=== PATIENT | male | born 1955 | race African-American/Black ===

== ENCOUNTER 2018-06-25 12:04 | Inpatient (IN) | payer MEDICAID, OTHER ==
[~2018-06-25] VITALS: Ht 175.3 cm; Wt 93.5 kg
[~2018-06-25 12:04] MED LIST: ASPI-482 PO; ATOR20TA58 PO; CARV3.12 PO; HYDR25TA9 PO; HYDR50TA6 PO; ISOS20TA2 PO; LISI-334 PO; NITR0.4T SL; PRAS10TA9 PO
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
[2018-06-25 12:28] LABS: BASO % 0 % (0-3); EOS # 0.1 x10^3/uL (0.0-0.7); EOS % 1 % (0-3); HEMATOCRIT 40.5 % (39.0-53.0); HEMOGLOBIN 13.6 g/dL (13.0-17.5); LYMPH % 32 % (24-48); MEAN CORPUSCULAR HEMOGLOBIN 30 pg (25-35); MEAN CORPUSCULAR HGB CONC 34 g/dL (31-37); MEAN CORPUSCULAR VOLUME 90 fL (79-100); MONO # 0.8 x10^3/uL (0.0-1.1); MONO % 13 % (0-9); NEUT # 3.3 x10^3uL (1.8-7.7); NEUT % 54 % (31-73); PLATELET COUNT 160 x10^3/uL (140-400); RED BLOOD COUNT 4.51 x10^6/uL (4.30-5.70); RED CELL DISTRIBUTION WIDTH 14.4 % (11.5-14.5); WHITE BLOOD COUNT 6.1 x10^3/uL (4.0-11.0)
[2018-06-25 12:37] LABS: CALCIUM 9.7 mg/dL (8.5-10.1); CREATININE 1.2 mg/dL (0.7-1.3); GFR 74.2; POTASSIUM 4.3 mmol/L (3.5-5.1)
--- NOTE | 2018-06-25 12:39 | RAD ---
PORTABLE CHEST 1V Clinical Indication: chest pain x today Comparison: Two-view chest, May 05, 2016. Findings: Moderate cardiomegaly, not significantly changed. Cannot exclude component of pericardial effusion. Upper mediastinum is normal. No pulmonary vascular congestion. Lungs are clear. There is no pneumothorax. No pleural effusion is appreciated. No acute bone abnormality. IMPRESSION: Stable moderate cardiomegaly. No congestive failure. Electronically signed by: Wm Pichardo MD (06/25/2018 12:36 PM) [id number]
[2018-06-25 12:43] LABS: ALBUMIN 3.5 g/dL (3.4-5.0); MAGNESIUM 2.1 mg/dL (1.8-2.4); TOTAL BILIRUBIN 0.8 mg/dL (0.2-1.0)
[2018-06-25] MEDS ORDERED: HEPARIN for IV BOLUS 10,000 UNIT/10 ML VIAL. IV ONE (13:00)
[2018-06-25] MEDS ORDERED: HEPARIN 25,000UTS/500ML PREMIX 500 ML IV PRN (13:00)
[2018-06-25] MEDS ORDERED: NITROGLYCERIN OINT 1 GM PACKET. TP ONE (13:00)
[2018-06-25] MEDS ORDERED: HEPARIN for IV BOLUS 10,000 UNIT/10 ML VIAL. IV PRN (13:00)
[2018-06-25] MEDS ORDERED: ACETAMINOPHEN 500 MG TABLET PO ONE (13:15)
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
--- NOTE | 2018-06-25 14:34 | EKG ---
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
[2018-06-25 16:00] VITALS: BP 128/59
[2018-06-25 16:03] LABS: CHOLESTEROL/HDL RATIO 2.9
[2018-06-25] MEDS ORDERED: DEXTROSE 50% 25 GM / 50ML DISP.SYRIN. IV PRN (16:15)
[2018-06-25] MEDS ORDERED: METO25TA4 PO (16:19)
[2018-06-25] MEDS ORDERED: ISOS30TA4 PO (16:19)
[2018-06-25] MEDS ORDERED: FURO40TA4 PO (16:19)
[2018-06-25] MEDS ORDERED: HYDR-2868 PO (16:19)
[2018-06-25] MEDS ORDERED: SPIR25TA5 PO (16:19)
[2018-06-25] MEDS ORDERED: METOPROLOL SUCC 24HR ER 25 MG TAB.ER.24H. PO SCH (16:30)
[2018-06-25] MEDS: ASPIRIN ENTERIC COATED 81 MG TABLET.DR. PO SCH (16:30)
[2018-06-25] MEDS: INSULIN LISPRO 300 UNITS/3 ML INSULN.PEN. SQ SCH (17:00)
[2018-06-25] MEDS: LISINOPRIL 20 MG TABLET PO SCH (17:26)
[2018-06-25] MEDS: FUROSEMIDE 40 MG TABLET. PO SCH (17:26)
[2018-06-25] MEDS: SPIRONOLACTONE 25 MG TABLET PO SCH (17:26)
[2018-06-25 19:00] VITALS: BP 140/64
[2018-06-25] MEDS: hydrALAZINE 25 MG TABLET PO SCH (21:37)
[2018-06-25] MEDS: METOPROLOL TART IMMED RELEASE 25 MG TABLET. PO SCH (21:37)
[2018-06-25 23:00] VITALS: BP 120/49
[2018-06-25] MEDS: ACETAMINOPHEN 500 MG TABLET PO PRN (23:46)
[2018-06-26] VITALS (7 sets, daily range): BP systolic 92–137; BP diastolic 43–63
[2018-06-26] MEDS: HYDROcodone/APAP 5/325MG 1 TAB TABLET PO PRN ×2 (01:22→22:30)
[2018-06-26] MEDS: INSULIN LISPRO 300 UNITS/3 ML INSULN.PEN. SQ SCH ×3 (08:00→17:00)
[2018-06-26] MEDS: ASPIRIN ENTERIC COATED 81 MG TABLET.DR. PO SCH (08:56)
[2018-06-26] MEDS: ISOSORBIDE MONONITRATE 20 MG TABLET PO SCH ×2 (09:00→14:00)
[2018-06-26] MEDS: LISINOPRIL 20 MG TABLET PO SCH (09:00)
[2018-06-26] MEDS: SPIRONOLACTONE 25 MG TABLET PO SCH (09:00)
[2018-06-26] MEDS: hydrALAZINE 25 MG TABLET PO SCH ×2 (09:00→20:52)
[2018-06-26] MEDS: FUROSEMIDE 40 MG TABLET. PO SCH (09:00)
[2018-06-26] MEDS: METOPROLOL TART IMMED RELEASE 25 MG TABLET. PO SCH (09:00)
--- NOTE | 2018-06-26 09:36 | RAD ---
MR#: [id number] Date of Study: 06/25/2018 Ordering Physician: GERALDO WASHINGTON, Referring Physician: YOLIS SANDOVAL, Tech: Jose Irby MBA, RDMS, RVT, RDCS, RTR APPROVED REPORT Patient Location: IN-PATIENT Indications AAA Duplex Results A/PTransverseLongitudinal Proximal Aorta 2.3cm2.2cm Mid Aorta 2.1cm1.8cm Distal Aorta 2.4cm1.2cm Findings Grayscale images of the abdominal aorta were obtained in transverse and longitudinal planes. Images a re technically limited by gas. No obvious aneurysmal dilatation is noted with maximum transversal dimensions measuring 2.4 cm in the distal abdominal aorta. The bilateral common iliacs were visualized on limited images and are mildly dilated at 1.4 and 1.8 cm on the right and left respectively. Critical Notification Critical Value: No <Conclusion> No focal aneurysmal dilatation of the abdominal aorta is appreciated on this ultrasound examination Normal spectral velocities in the abdominal aorta. Signed by : Marshall Andrew, Electronically Approved : 06/26/2018 09:35:48
[2018-06-26] MEDS: ANTI-COAG MONITOR BY PHARMACY. MC PRN (10:07)
--- NOTE | 2018-06-26 11:01 | CARD ---
MR#: [id number] Date of Study: 06/26/2018 Ordering Physician: GERALDO WASHINGTON, Referring Physician: YOLIS SANDOVAL Tech: Maria C Gallagher [facility] APPROVED REPORT EXAM: Two-dimensional and M-mode echocardiogram with Doppler and color Doppler. Other Information Quality : Good Rhythm : Atrial Flutter INDICATION Abnormal ECG Cardiac Disease: CAD Chest Pain Aflutter 2D DIMENSIONS RVDd3.3 (2.9-3.5cm)Left Atrium(2D)4.4 (1.6-4.0cm) IVSd1.5 (0.7-1.1cm)Aortic Root(2D)2.9 (2.0-3.7cm) LVDd6.4 (3.9-5.9cm)LVOT Diameter2.1 (1.8-2.4cm) PWd1.2 (0.7-1.1cm)LVDs5.0 (2.5-4.0cm) FS (%) 21.8 %SV89.2 ml LVEF(%)45.0 (>50%) Aortic Valve AoV Peak Cem.184.5cm/sAoV VTI31.2cm AO Peak GR.13.6mmHgLVOT VTI 23.93cm AO Mean GR.7mmHgAVA (VTI)2.60cm2 Mitral Valve MV E Nwyakpgu13.3cm/sMV DECEL [id number] TDI Medial E' P. V7.21cm/sE/Medial E'13.6 Tricuspid Valve TR P. Mmzkvzaa433hb/sRAP [id number] TR Peak Gr.49nkEqYHTC43qeJb Pulmonary Vein S1 Bclrdvhb79.2cm/sS2 Mtidvdyh82.64cm/s D2 Temuiemm38.6cm/s LEFT VENTRICLE The Left Ventricle is mildly dilated. There is mild to moderate concentric left ventricular hypertrop hy. The left ventricular systolic function is mildly diminished. The Ejection Fraction is estimated a t 40-45%. Septal motion consistent with conduction abnormality. RIGHT VENTRICLE The right ventricle is normal size. The right ventricular systolic function is normal. ATRIA The left atrium is mildly dilated. The right atrium is mildly dilated. The interatrial septum is inta ct with no evidence for an atrial septal defect or patent foramen ovale as noted on 2-D or Doppler im aging. AORTIC VALVE The aortic valve is calcified but opens well. Doppler and Color Flow revealed no significant aortic r egurgitation. There is no significant aortic valvular stenosis. MITRAL VALVE The mitral valve is calcified but opens well. Mitral annular calcification is mild. There is no evide nce of mitral valve prolapse. There is no mitral valve stenosis. Doppler and Color-flow revealed mild mitral regurgitation. TRICUSPID VALVE The tricuspid valve is normal in structure and function. Doppler and Color Flow revealed trace tricus pid regurgitation. There is mild pulmonary hypertension. The PA pressure was estimated at 35 mmHg. Th ere is no tricuspid valve stenosis. PULMONIC VALVE The pulmonary valve is normal in structure and function. Doppler and Color Flow revealed trace pulmon ic valvular regurgitation. There is no pulmonic valvular stenosis. GREAT VESSELS The aortic root is normal in size. The ascending aorta is normal in size. The IVC is normal in size a nd collapses >50% with inspiration. PERICARDIAL EFFUSION There is no evidence of significant pericardial effusion. Critical Notification Critical Value: No <Conclusion> The left ventricular systolic function is mildly diminished. The Ejection Fraction is estimated at 40-45%. The left atrium is mildly dilated. Mild mitral regurgitation. Trace tricuspid regurgitation. The PA pressure was estimated at 35 mmHg. There is no evidence of significant pericardial effusion. Signed by : Derek Wallace, Electronically Approved : 06/26/2018 11:01:20
[2018-06-26] MEDS ORDERED: LIDOCAINE 1% PF 2 ML VIAL. ONE (11:28)
[2018-06-26] MEDS ORDERED: IODIXANOL 320 MG/ML 100 ML VIAL. ONE (11:28)
[2018-06-26] MEDS ORDERED: HEPARIN for IV BOLUS 10,000 UNIT/10 ML VIAL. ONE (11:55)
[2018-06-26] MEDS ORDERED: VERAPAMIL 5 MG/2 ML VIAL. ONE (11:55)
[2018-06-26] MEDS ORDERED: MIDAZOLAM HCL/PF 2 MG/2 ML VIAL. ONE (11:55)
[2018-06-26] MEDS ORDERED: fentaNYL PF VIAL 100 MCG/2 ML VIAL ONE (11:55)
[2018-06-26] MEDS ORDERED: NITROGLYCERIN 200 MCG/2 ML SYRINGE FOR CATH/VASC LAB. ONE (11:56)
--- NOTE | 2018-06-26 12:14 | PDOC ---
PROGRESS NOTES Chief Complaint Chief Complaint chest pain, possibly N STEMI History CAD, with 1 stent SLow atrial flutter, new onset Incarcerated HTN controlled \Smoker Fam HX CAD. premature History of Present Illness History of Present Illness Out having [facility] Heart rate 50s, on beta gibson 25 twice a day A flutter/A. fib is new onset PLAN: ff up [facility] Trop peaked to 0.5 Follow crads recs IS incarcerated dw RN Doroteo Vitals Vitals Vital Signs Date Time Temp Pulse Resp B/P (MAP) Pulse Ox O2 Delivery O2 Flow Rate FiO2 06/26/18 09:14 50 06/26/18 09:00 111/45 06/26/18 08:06 Room Air 06/26/18 07:00 98.5 16 96 98.5 06/25/18 12:17 2.0 Physical Exam General: Alert, Oriented X3, Cooperative, No acute distress Heart: Other (AFIB; 2/6 systolic murmur to LLS border) Lungs: Clear, Other Abdomen: Soft, No tenderness Extremities: No cyanosis, No edema Skin: No breakdown, No significant lesion Labs LABS Laboratory Tests Test 06/25/18 12:23 06/25/18 16:53 06/25/18 19:35 06/26/18 02:15 White Blood Count 6.1 x10^3/uL (4.0-11.0) Red Blood Count 4.51 x10^6/uL (4.30-5.70) Hemoglobin 13.6 g/dL (13.0-17.5) Hematocrit 40.5 % (39.0-53.0) Mean Corpuscular Volume 90 fL (79-100) Mean Corpuscular Hemoglobin 30 pg (25-35) Mean Corpuscular Hemoglobin Concent 34 g/dL (31-37) Red Cell Distribution Width 14.4 % (11.5-14.5) Platelet Count 160 x10^3/uL (140-400) Neutrophils (%) (Auto) 54 % (31-73) Lymphocytes (%) (Auto) 32 % (24-48) Monocytes (%) (Auto) 13 % (0-9) Eosinophils (%) (Auto) 1 % (0-3) Basophils (%) (Auto) 0 % (0-3) Neutrophils # (Auto) 3.3 x10^3uL (1.8-7.7) Lymphocytes # (Auto) 2.0 x10^3/uL (1.0-4.8) Monocytes # (Auto) 0.8 x10^3/uL (0.0-1.1) Eosinophils # (Auto) 0.1 x10^3/uL (0.0-0.7) Basophils # (Auto) 0.0 x10^3/uL (0.0-0.2) Prothrombin Time 14.0 SEC (11.7-14.0) Prothromb Time International Ratio 1.1 (0.8-1.1) Sodium Level 143 mmol/L (136-145) Potassium Level 4.3 mmol/L (3.5-5.1) Chloride Level 108 mmol/L (98-107) Carbon Dioxide Level 29 mmol/L (21-32) Anion Gap 6 (6-14) Blood Urea Nitrogen 12 mg/dL (8-26) Creatinine 1.2 mg/dL (0.7-1.3) Estimated GFR (Cockcroft-Gault) 74.2 BUN/Creatinine Ratio 10 (6-20) Glucose Level 84 mg/dL (70-99) Calcium Level 9.7 mg/dL (8.5-10.1) Magnesium Level 2.1 mg/dL (1.8-2.4) Total Bilirubin 0.8 mg/dL (0.2-1.0) Aspartate Amino Transf (AST/SGOT) 20 U/L (15-37) Alanine Aminotransferase (ALT/SGPT) 24 U/L (16-63) Alkaline Phosphatase 47 U/L (46-116) Creatine Kinase 105 U/L (39-308) Creatine Kinase MB (Mass) 8.8 ng/mL (0.0-3.6) Creatine Kinase MB Relative Index 8.4 % (0-4) Troponin I Quantitative 0.788 ng/mL (0.000-0.055) 0.524 ng/mL (0.000-0.055) CX-Iqo-K-Type Natriuretic Peptide 2379 pg/mL (0-124) Total Protein 7.0 g/dL (6.4-8.2) Albumin 3.5 g/dL (3.4-5.0) Albumin/Globulin Ratio 1.0 (1.0-1.7) Triglycerides Level 86 mg/dL (0-150) Cholesterol Level 115 mg/dL (0-200) LDL Cholesterol, Calculated 58 mg/dL (0-100) VLDL Cholesterol, Calculated 17 mg/dL (0-40) Non-HDL Cholesterol Calculated 75 mg/dL (0-129) HDL Cholesterol 40 mg/dL (40-60) Cholesterol/HDL Ratio 2.9 Lipase 97 U/L (73-393) Thyroid Stimulating Hormone (TSH) 0.616 uIU/mL (0.358-3.74) Glucose (Fingerstick) 91 mg/dL (70-99) Heparin Anti-Xa Act, Unfractionated 0.56 IU/mL (0.30-0.70) 0.48 IU/mL (0.30-0.70) Test 06/26/18 08:15 06/26/18 09:03 Heparin Anti-Xa Act, Unfractionated 0.52 IU/mL (0.30-0.70) Glucose (Fingerstick) 77 mg/dL (70-99) Review of Systems Review of Systems Out having [facility] Assessment and Plan Assessmemt and Plan Problems Medical Problems: (1) Acute coronary syndrome Status: Acute (2) Chest pain Status: Acute Comment Review of Relevant I have reviewed the following items vanda (where applicable) has been applied. Labs Laboratory Tests Test 06/25/18 12:23 06/25/18 16:53 06/25/18 19:35 06/26/18 02:15 White Blood Count 6.1 x10^3/uL (4.0-11.0) Red Blood Count 4.51 x10^6/uL (4.30-5.70) Hemoglobin 13.6 g/dL (13.0-17.5) Hematocrit 40.5 % (39.0-53.0) Mean Corpuscular Volume 90 fL (79-100) Mean Corpuscular Hemoglobin 30 pg (25-35) Mean Corpuscular Hemoglobin Concent 34 g/dL (31-37) Red Cell Distribution Width 14.4 % (11.5-14.5) Platelet Count 160 x10^3/uL (140-400) Neutrophils (%) (Auto) 54 % (31-73) Lymphocytes (%) (Auto) 32 % (24-48) Monocytes (%) (Auto) 13 % (0-9) Eosinophils (%) (Auto) 1 % (0-3) Basophils (%) (Auto) 0 % (0-3) Neutrophils # (Auto) 3.3 x10^3uL (1.8-7.7) Lymphocytes # (Auto) 2.0 x10^3/uL (1.0-4.8) Monocytes # (Auto) 0.8 x10^3/uL (0.0-1.1) Eosinophils # (Auto) 0.1 x10^3/uL (0.0-0.7) Basophils # (Auto) 0.0 x10^3/uL (0.0-0.2) Prothrombin Time 14.0 SEC (11.7-14.0) Prothromb Time International Ratio 1.1 (0.8-1.1) Sodium Level 143 mmol/L (136-145) Potassium Level 4.3 mmol/L (3.5-5.1) Chloride Level 108 mmol/L (98-107) Carbon Dioxide Level 29 mmol/L (21-32) Anion Gap 6 (6-14) Blood Urea Nitrogen 12 mg/dL (8-26) Creatinine 1.2 mg/dL (0.7-1.3) Estimated GFR (Cockcroft-Gault) 74.2 BUN/Creatinine Ratio 10 (6-20) Glucose Level 84 mg/dL (70-99) Calcium Level 9.7 mg/dL (8.5-10.1) Magnesium Level 2.1 mg/dL (1.8-2.4) Total Bilirubin 0.8 mg/dL (0.2-1.0) Aspartate Amino Transf (AST/SGOT) 20 U/L (15-37) Alanine Aminotransferase (ALT/SGPT) 24 U/L (16-63) Alkaline Phosphatase 47 U/L (46-116) Creatine Kinase 105 U/L (39-308) Creatine Kinase MB (Mass) 8.8 ng/mL (0.0-3.6) Creatine Kinase MB Relative Index 8.4 % (0-4) Troponin I Quantitative 0.788 ng/mL (0.000-0.055) 0.524 ng/mL (0.000-0.055) BN-Wbm-N-Type Natriuretic Peptide 2379 pg/mL (0-124) Total Protein 7.0 g/dL (6.4-8.2) Albumin 3.5 g/dL (3.4-5.0) Albumin/Globulin Ratio 1.0 (1.0-1.7) Triglycerides Level 86 mg/dL (0-150) Cholesterol Level 115 mg/dL (0-200) LDL Cholesterol, Calculated 58 mg/dL (0-100) VLDL Cholesterol, Calculated 17 mg/dL (0-40) Non-HDL Cholesterol Calculated 75 mg/dL (0-129) HDL Cholesterol 40 mg/dL (40-60) Cholesterol/HDL Ratio 2.9 Lipase 97 U/L (73-393) Thyroid Stimulating Hormone (TSH) 0.616 uIU/mL (0.358-3.74) Glucose (Fingerstick) 91 mg/dL (70-99) Heparin Anti-Xa Act, Unfractionated 0.56 IU/mL (0.30-0.70) 0.48 IU/mL (0.30-0.70) Test 06/26/18 08:15 06/26/18 09:03 Heparin Anti-Xa Act, Unfractionated 0.52 IU/mL (0.30-0.70) Glucose (Fingerstick) 77 mg/dL (70-99) Laboratory Tests Test 06/25/18 12:23 06/25/18 16:53 06/25/18 19:35 06/26/18 02:15 White Blood Count 6.1 x10^3/uL (4.0-11.0) Red Blood Count 4.51 x10^6/uL (4.30-5.70) Hemoglobin 13.6 g/dL (13.0-17.5) Hematocrit 40.5 % (39.0-53.0) Mean Corpuscular Volume 90 fL (79-100) Mean Corpuscular Hemoglobin 30 pg (25-35) Mean Corpuscular Hemoglobin Concent 34 g/dL (31-37) Red Cell Distribution Width 14.4 % (11.5-14.5) Platelet Count 160 x10^3/uL (140-400) Neutrophils (%) (Auto) 54 % (31-73) Lymphocytes (%) (Auto) 32 % (24-48) Monocytes (%) (Auto) 13 % (0-9) Eosinophils (%) (Auto) 1 % (0-3) Basophils (%) (Auto) 0 % (0-3) Neutrophils # (Auto) 3.3 x10^3uL (1.8-7.7) Lymphocytes # (Auto) 2.0 x10^3/uL (1.0-4.8) Monocytes # (Auto) 0.8 x10^3/uL (0.0-1.1) Eosinophils # (Auto) 0.1 x10^3/uL (0.0-0.7) Basophils # (Auto) 0.0 x10^3/uL (0.0-0.2) Prothrombin Time 14.0 SEC (11.7-14.0) Prothromb Time International Ratio 1.1 (0.8-1.1) Sodium Level 143 mmol/L (136-145) Potassium Level 4.3 mmol/L (3.5-5.1) Chloride Level 108 mmol/L (98-107) Carbon Dioxide Level 29 mmol/L (21-32) Anion Gap 6 (6-14) Blood Urea Nitrogen 12 mg/dL (8-26) Creatinine 1.2 mg/dL (0.7-1.3) Estimated GFR (Cockcroft-Gault) 74.2 BUN/Creatinine Ratio 10 (6-20) Glucose Level 84 mg/dL (70-99) Calcium Level 9.7 mg/dL (8.5-10.1) Magnesium Level 2.1 mg/dL (1.8-2.4) Total Bilirubin 0.8 mg/dL (0.2-1.0) Aspartate Amino Transf (AST/SGOT) 20 U/L (15-37) Alanine Aminotransferase (ALT/SGPT) 24 U/L (16-63) Alkaline Phosphatase 47 U/L (46-116) Creatine Kinase 105 U/L (39-308) Creatine Kinase MB (Mass) 8.8 ng/mL (0.0-3.6) Creatine Kinase MB Relative Index 8.4 % (0-4) Troponin I Quantitative 0.788 ng/mL (0.000-0.055) 0.524 ng/mL (0.000-0.055) FM-Iyu-H-Type Natriuretic Peptide 2379 pg/mL (0-124) Total Protein 7.0 g/dL (6.4-8.2) Albumin 3.5 g/dL (3.4-5.0) Albumin/Globulin Ratio 1.0 (1.0-1.7) Triglycerides Level 86 mg/dL (0-150) Cholesterol Level 115 mg/dL (0-200) LDL Cholesterol, Calculated 58 mg/dL (0-100) VLDL Cholesterol, Calculated 17 mg/dL (0-40) Non-HDL Cholesterol Calculated 75 mg/dL (0-129) HDL Cholesterol 40 mg/dL (40-60) Cholesterol/HDL Ratio 2.9 Lipase 97 U/L (73-393) Thyroid Stimulating Hormone (TSH) 0.616 uIU/mL (0.358-3.74) Glucose (Fingerstick) 91 mg/dL (70-99) Heparin Anti-Xa Act, Unfractionated 0.56 IU/mL (0.30-0.70) 0.48 IU/mL (0.30-0.70) Test 06/26/18 08:15 06/26/18 09:03 Heparin Anti-Xa Act, Unfractionated 0.52 IU/mL (0.30-0.70) Glucose (Fingerstick) 77 mg/dL (70-99) Medications Current Medications Heparin Sodium (Porcine) (Heparin Sodium) 4,000 unit 1X ONCE IV Last administered on 06/25/18at 13:18; Start 06/25/18 at 13:00; Stop 06/25/18 at 13 :01; Status DC Heparin Sodium/ Dextrose 500 ml @ 0 mls/hr CONT PRN IV SEE I/O RECORD Last administered on 06/25/18at 13:23; Start 06/25/18 at 13:00 Heparin Sodium (Porcine) (Heparin Sodium) 2,300 unit PRN Q6HRS PRN IV FOR UFH LEVEL LESS THAN 0.2; Start 06/25/18 at 13:00 Nitroglycerin (Nitro-Bid Oint) 1 inch 1X ONCE TP Last administered on at 13:17; Start 06/25/18 at 13:00; Stop 06/25/18 at 13:01; Status DC Info (Anti-Coagulation Monitoring By Pharmacy) 1 each PRN DAILY PRN MC SEE COMMENTS Last administered on 06/26/18at 10:07; Start 06/25/18 at 13:00 Acetaminophen (Tylenol) 1,000 mg 1X ONCE PO Last administered on 06/25/18at 13 :27; Start 06/25/18 at 13:15; Stop 06/25/18 at 13:16; Status DC Metoprolol Succinate (Toprol Xl) 25 mg DAILY PO ; Start 06/25/18 at 16:30; Stop 06/25/18 at 16:30; Status DC Aspirin (Ecotrin) 81 mg DAILY PO Last administered on 06/26/18at 08:56; Start 06/25/18 at 16:30 Lisinopril (Prinivil) 20 mg DAILY PO Last administered on 06/25/18at 17:26; Start 06/25/18 at 16:30 Acetaminophen (Tylenol) 500 mg PRN Q6HRS PRN PO MILD PAIN / TEMP Last administered on 06/25/18at 23:46; Start 06/25/18 at 16:15 Insulin Human Lispro (HumaLOG) 0-9 UNITS TIDWMEALS SQ ; Start 06/25/18 at 17:00 Dextrose (Dextrose 50%-Water Syringe) 12.5 gm PRN Q15MIN PRN IV SEE COMMENTS; Start 06/25/18 at 16:15 Furosemide (Lasix) 40 mg DAILY PO Last administered on 06/25/18at 17:26; Start 06/25/18 at 17:00 Isosorbide Mononitrate (Ismo) 10 mg BID92 PO ; Start 06/26/18 at 09:00 Metoprolol Tartrate (Lopressor) 25 mg BID PO Last administered on 06/25/18at 21 :37; Start 06/25/18 at 21:00 Hydralazine HCl (Apresoline) 25 mg BID PO Last administered on 06/25/18at 21:37 ; Start 06/25/18 at 21:00 Spironolactone (Aldactone) 25 mg DAILY PO Last administered on 06/25/18at 17:26 ; Start 06/25/18 at 17:00 Influenza Virus Vaccine (Afluria Trivalent 4549-6623 Syringe) 0.5 ml ONCE ONCE VAX IM Last administered on 06/25/18at 17:29; Start 06/25/18 at 17:00; Stop 06/25/18 at 17:01; Status DC Acetaminophen/ Hydrocodone Bitart (Lortab 5/325) 1 tab PRN Q4HRS PRN PO MODERATE - SEVERE PAIN Last administered on 06/26/18at 01:22; Start 06/26/18 at 01:15 Iodixanol (Visipaque 320) 100 ml STK-MED ONCE .ROUTE ; Start 06/26/18 at 11:28 ; Stop 06/26/18 at 11:29; Status DC Lidocaine HCl (Xylocaine-Mpf 1% 2ml Vial) 2 ml STK-MED ONCE .ROUTE ; Start at 11:28; Stop 06/26/18 at 11:29; Status DC Heparin Sodium/ Sodium Chloride 500 ml @ As Directed STK-MED ONCE .ROUTE ; Start 06/26/18 at 11:28; Stop 06/26/18 at 11:29; Status DC Heparin Sodium/ Sodium Chloride 500 ml @ As Directed STK-MED ONCE .ROUTE ; Start 06/26/18 at 11:39; Stop 06/26/18 at 11:40; Status DC Fentanyl Citrate (Fentanyl 2ml Vial) 100 mcg STK-MED ONCE .ROUTE ; Start at 11:55; Stop 06/26/18 at 11:56; Status DC Midazolam HCl (Versed) 2 mg STK-MED ONCE .ROUTE ; Start 06/26/18 at 11:55; Stop 06/26/18 at 11:56; Status DC Heparin Sodium (Porcine) (Heparin Sodium) 10,000 unit STK-MED ONCE .ROUTE ; Start 06/26/18 at 11:55; Stop 06/26/18 at 11:56; Status DC Verapamil HCl (Verapamil) 5 mg STK-MED ONCE .ROUTE ; Start 06/26/18 at 11:55; Stop 06/26/18 at 11:56; Status DC Nitroglycerin (Nitroglycerin) 200 mcg STK-MED ONCE .ROUTE ; Start 06/26/18 at 11:56; Stop 06/26/18 at 11:57; Status DC Active Scripts Active Lisinopril 20 Mg Tablet 40 Mg PO DAILY Reported Spironolactone 25 Mg Tablet 25 Mg PO DAILY Metoprolol Tartrate 25 Mg Tablet 25 Mg PO BID Hydralazine Hcl 25 Mg Tablet 1 Tab PO BID Isosorbide Mononitrate Er (Isosorbide Mononitrate) 30 Mg Tab.er.24h 10 Mg PO BID Furosemide 40 Mg Tablet 40 Mg PO DAILY Aspir 81 (Aspirin) 81 Mg Tablet.dr 1 PO DAILY Vitals/I & O Vital Sign - Last 24 Hours 06/25/18 06/25/18 06/25/18 06/25/18 12:17 13:17 16:00 17:26 Temp 98.4 97.7 98.4 97.7 Pulse 54 59 63 63 Resp 18 B/P (MAP) 130/60 (83) 138/64 128/59 (82) 128/59 Pulse Ox 100 100 O2 Delivery Nasal Cannula Room Air O2 Flow Rate 2.0 06/25/18 06/25/18 06/25/18 06/25/18 19:00 19:10 21:37 21:37 Temp 97.6 97.6 Pulse 68 65 65 Resp 18 B/P (MAP) 140/64 (89) 140/64 140/64 Pulse Ox 98 O2 Delivery Room Air Room Air 06/25/18 06/26/18 06/26/18 06/26/18 23:00 01:22 02:23 07:00 Temp 98.0 98.5 98.0 98.5 Pulse 58 50 Resp 16 16 16 16 B/P (MAP) 120/49 (72) 111/45 (67) Pulse Ox 98 96 98 96 O2 Delivery Room Air Room Air Room Air Room Air 06/26/18 06/26/18 06/26/18 08:06 09:00 09:14 Pulse 50 50 B/P (MAP) 111/45 O2 Delivery Room Air Intake and Output 06/25/18 06/25/18 06/26/18 15:00 23:00 07:00 Intake Total 220 ml 240 ml Balance 220 ml 240 ml YOLIS SANDOVAL MD Jun 26, 2018 12:14
[2018-06-26] MEDS ORDERED: NITROGLYCERIN 200 MCG/2 ML SYRINGE FOR CATH/VASC LAB. IART ONE (12:15)
[2018-06-26] MEDS ORDERED: VERAPAMIL 5 MG/2 ML VIAL. IART ONE (12:15)
[2018-06-26] MEDS ORDERED: HEPARIN for IV BOLUS 10,000 UNIT/10 ML VIAL. IART ONE (12:15)
[2018-06-26] MEDS ORDERED: MIDAZOLAM HCL/PF 2 MG/2 ML VIAL. IV ONE (12:15)
[2018-06-26] MEDS ORDERED: fentaNYL PF VIAL 100 MCG/2 ML VIAL IV ONE (12:15)
[2018-06-26] MEDS ORDERED: LIDOCAINE 1% PF 2 ML VIAL. INJ ONE (12:15)
[2018-06-26] MEDS ORDERED: IODIXANOL 320 MG/ML 100 ML VIAL. IART ONE (12:15)
[2018-06-26] MEDS ORDERED: CONTRAST GIVEN. MC PRN (12:30)
--- NOTE | 2018-06-26 13:17 | CARD ---
MR#: [id number] Date of Study: 06/26/2018 Ordering Physician: DARBY ANDREW, Referring Physician: YOLIS SANDOVAL Tech: RT Jayshree (R) APPROVED REPORT Technologist: Quita Gallagher RT (R) Nurse: Antonia River R.N. Procedure(s) performed: Moderate sedation: 24 minutes LHC/Left ventriculogram, Coronary angiography HISTORY The patient is a 62 year-old male with a history of : coronary artery disease. INDICATION The indication(s) include : unstable angina . PROCEDURE NARRATIVE INFORMED CONSENT: After explaining the risks and benefits of the procedure and alternatives, informed consent was obtained. The patient was brought electively to the cardiac catheterization lab. A timeout was performed confi rming the patient's name, date of , procedure, and site of procedure. All necessary personnel w ere wearing the appropriate protective equipment and radiation monitor devices. (See nursing notes for medications administered). ACCESS: The right wrist was sterilely prepped and draped in the usual fashion. The right wrist was infiltrat ed with 1 mL of 2% lidocaine for subcutaneous anesthesia. A 6 Pakistani Terumo glide sheath was inserte d into the right radial artery without difficulty. CORONARY ANGIOGRAPHY: Right and left coronary angiography was performed using a 6Fr TIG 4.0 catheter. Left ventricular en d diastolic pressure was obtained with a TIG catheter and pullback was performed after left ventricul ography. All catheter exchanges and advancements were performed over a guidewire. CLOSURE: At case completion the right radial sheath was removed and a Terumo radial band was applied with 13 m l of air. COMPLICATIONS: The patient tolerated the procedure well and there were no immediate complications. FINDINGS: HEMODYNAMICS: LVEDP 18 mm Hg No gradient on LV to aortic pullback. AO: 100/60 LEFT VENTRICULOGRAM: EF 45% - Mild global hypokinesis. CORONARY ANGIOGRAPHY: LM is a large caliber vessel with normal angiographic appearance. LAD is a large caliber vessel with normal angiographic appearance. D1/D2 are moderate caliber vessels with normal angiographic apeparance. LCx is a moderate caliber non-dominant vessel with a patent mid stent with less than 30% ISR. OM1 is a moderate caliber vessel with normal angiographic appearance. There is an apical segment with 80% stenosis. RCA is a large caliber dominant vessel with na mid 30% stenosis. RPDA and RPL are moderate caliber vessels with normal angiographic appearance. Conclusion 1. Mildly elevated left sided filling pressures with mild LV dysfunction. EF 45% 2. One vessel CAD with patent Lcx stent. Recommendations Aggressive Medical Therapy Signed by : Darby Andrew, Electronically Approved : 06/26/2018 13:16:54
[2018-06-27 03:48] VITALS: BP 125/81
[2018-06-27 07:00] VITALS: BP 125/50
[2018-06-27] MEDS: INSULIN LISPRO 300 UNITS/3 ML INSULN.PEN. SQ SCH ×2 (08:00→12:00)
[2018-06-27] MEDS: FUROSEMIDE 40 MG TABLET. PO SCH (08:38)
[2018-06-27] MEDS: hydrALAZINE 25 MG TABLET PO SCH (08:38)
[2018-06-27] MEDS: LISINOPRIL 20 MG TABLET PO SCH (08:38)
[2018-06-27] MEDS: SPIRONOLACTONE 25 MG TABLET PO SCH (08:38)
[2018-06-27] MEDS: ISOSORBIDE MONONITRATE 20 MG TABLET PO SCH ×2 (08:39→14:56)
[2018-06-27] MEDS: ASPIRIN ENTERIC COATED 81 MG TABLET.DR. PO SCH (08:39)
[2018-06-27] MEDS: ACETAMINOPHEN 500 MG TABLET PO PRN (08:42)
--- NOTE | 2018-06-27 09:44 | PDOC ---
CARDIO Progress Notes Date and Time Date of Service 06/27/2018 Time of Evaluation 0940 Subjective Subjective: No Chest Pain, No shortness of breath, No Palpitations Vitals Vitals Vital Signs Date Time Temp Pulse Resp B/P (MAP) Pulse Ox O2 Delivery O2 Flow Rate FiO2 06/27/18 08:39 57 125/50 06/27/18 08:00 Room Air 06/27/18 07:00 97.8 18 100 97.8 06/26/18 13:47 2.0 Weight Weight [ ] Input and Output Intake and Output Intake and Output 06/27/18 07:00 Intake Total 1620 ml Balance 1620 ml Intake Oral 1620 ml Laboratory Labs Laboratory Tests Test 06/26/18 17:50 06/27/18 07:43 Glucose (Fingerstick) 85 mg/dL (70-99) 91 mg/dL (70-99) Physical Exam HEENT: Neck Supple W Full Motion Chest: Symmetric LUNGS: Clear to Auscultation Heart: S1S2, irregularly irregular (AFIB) Abdomen: Soft N/T Extremities: No Calf Tenderness Neurology: alert, oriented, follow commands Assessment Assessment 1. NSTEMI: with chronic LBBB. Trop elevation and CP suspect from arrhythmia 2. AFIB: Possibly chronic as this has been noted in 2016. 3. 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 CAD; 05/2016 PCI/CARLOS to LCx 4. HTN: controlled 6. HLP 7. ICM/chronic systolic CHF: EF 40-45% about the same as before 8. Tobaccoism Recommendations 1. C showed patent LCx stent with mild disease to RCA and 80% lesion to apical segment at OM1 which will be treated medically. 2. Continue with ASA, statin, lisinopril but unable to place on BB at this time due to carlos episodes. 3. 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 and follow up in office in 4-5 weeks time 4. Will arrange for event monitor upon DC to ascertain need for any pacemaker and further rate controlling agents. 5. Smoking cessation. 6. Coumadin to start for stroke prevention, discussed with RN and correctional facility medical personal to monitor INR. 7. Continue with lasix therapy GERALDO WASHINGTON MISSILE MECHANIC Jun 27, 2018 09:44
[2018-06-27] MEDS ORDERED: WARF10TA45 MC (09:52)
--- NOTE | 2018-06-27 10:27 | PDOC ---
PROGRESS NOTES Chief Complaint Chief Complaint chest pain, s/p clean [facility] 06/26 History CAD, with 1 stent SLow atrial flutter, new onset TACHY-Braden syndrome Incarcerated HTN controlled \Smoker Fam HX CAD. premature History of Present Illness History of Present Illness FEels dizzy and lightheaded occasionally Tachycardia bradycardia on the monitor Clean [facility] Plan or thoughts about pacemaker by cardiology Plan: Thoughts about pacemaker CPM, follow cards recs Discussed with staff Vitals Vitals Vital Signs Date Time Temp Pulse Resp B/P (MAP) Pulse Ox O2 Delivery O2 Flow Rate FiO2 06/27/18 08:39 57 125/50 06/27/18 08:00 Room Air 06/27/18 07:00 97.8 18 100 97.8 06/26/18 13:47 2.0 Physical Exam General: Alert, Oriented X3, Cooperative, No acute distress Heart: No murmurs, Other (AFIB; 2/6 systolic murmur to LLS border) Lungs: Clear, Other Abdomen: Soft, No tenderness Extremities: No cyanosis, No edema Skin: No breakdown, No significant lesion Labs LABS Laboratory Tests Test 06/26/18 17:50 06/27/18 07:43 Glucose (Fingerstick) 85 mg/dL (70-99) 91 mg/dL (70-99) Review of Systems Review of Systems Dizziness, lightheadedness occasionally, no chest pain, no SOA, he is weak Assessment and Plan Assessmemt and Plan Problems Medical Problems: (1) Acute coronary syndrome Status: Acute (2) Chest pain Status: Acute Comment Review of Relevant I have reviewed the following items vanda (where applicable) has been applied. Labs Laboratory Tests Test 06/25/18 12:23 06/25/18 16:53 06/25/18 19:35 06/26/18 02:15 White Blood Count 6.1 x10^3/uL (4.0-11.0) Red Blood Count 4.51 x10^6/uL (4.30-5.70) Hemoglobin 13.6 g/dL (13.0-17.5) Hematocrit 40.5 % (39.0-53.0) Mean Corpuscular Volume 90 fL (79-100) Mean Corpuscular Hemoglobin 30 pg (25-35) Mean Corpuscular Hemoglobin Concent 34 g/dL (31-37) Red Cell Distribution Width 14.4 % (11.5-14.5) Platelet Count 160 x10^3/uL (140-400) Neutrophils (%) (Auto) 54 % (31-73) Lymphocytes (%) (Auto) 32 % (24-48) Monocytes (%) (Auto) 13 % (0-9) Eosinophils (%) (Auto) 1 % (0-3) Basophils (%) (Auto) 0 % (0-3) Neutrophils # (Auto) 3.3 x10^3uL (1.8-7.7) Lymphocytes # (Auto) 2.0 x10^3/uL (1.0-4.8) Monocytes # (Auto) 0.8 x10^3/uL (0.0-1.1) Eosinophils # (Auto) 0.1 x10^3/uL (0.0-0.7) Basophils # (Auto) 0.0 x10^3/uL (0.0-0.2) Prothrombin Time 14.0 SEC (11.7-14.0) Prothromb Time International Ratio 1.1 (0.8-1.1) Sodium Level 143 mmol/L (136-145) Potassium Level 4.3 mmol/L (3.5-5.1) Chloride Level 108 mmol/L (98-107) Carbon Dioxide Level 29 mmol/L (21-32) Anion Gap 6 (6-14) Blood Urea Nitrogen 12 mg/dL (8-26) Creatinine 1.2 mg/dL (0.7-1.3) Estimated GFR (Cockcroft-Gault) 74.2 BUN/Creatinine Ratio 10 (6-20) Glucose Level 84 mg/dL (70-99) Calcium Level 9.7 mg/dL (8.5-10.1) Magnesium Level 2.1 mg/dL (1.8-2.4) Total Bilirubin 0.8 mg/dL (0.2-1.0) Aspartate Amino Transf (AST/SGOT) 20 U/L (15-37) Alanine Aminotransferase (ALT/SGPT) 24 U/L (16-63) Alkaline Phosphatase 47 U/L (46-116) Creatine Kinase 105 U/L (39-308) Creatine Kinase MB (Mass) 8.8 ng/mL (0.0-3.6) Creatine Kinase MB Relative Index 8.4 % (0-4) Troponin I Quantitative 0.788 ng/mL (0.000-0.055) 0.524 ng/mL (0.000-0.055) DK-Gcr-I-Type Natriuretic Peptide 2379 pg/mL (0-124) Total Protein 7.0 g/dL (6.4-8.2) Albumin 3.5 g/dL (3.4-5.0) Albumin/Globulin Ratio 1.0 (1.0-1.7) Triglycerides Level 86 mg/dL (0-150) Cholesterol Level 115 mg/dL (0-200) LDL Cholesterol, Calculated 58 mg/dL (0-100) VLDL Cholesterol, Calculated 17 mg/dL (0-40) Non-HDL Cholesterol Calculated 75 mg/dL (0-129) HDL Cholesterol 40 mg/dL (40-60) Cholesterol/HDL Ratio 2.9 Lipase 97 U/L (73-393) Thyroid Stimulating Hormone (TSH) 0.616 uIU/mL (0.358-3.74) Glucose (Fingerstick) 91 mg/dL (70-99) Heparin Anti-Xa Act, Unfractionated 0.56 IU/mL (0.30-0.70) 0.48 IU/mL (0.30-0.70) Test 06/26/18 08:15 06/26/18 09:03 06/26/18 17:50 06/27/18 07:43 Heparin Anti-Xa Act, Unfractionated 0.52 IU/mL (0.30-0.70) Glucose (Fingerstick) 77 mg/dL (70-99) 85 mg/dL (70-99) 91 mg/dL (70-99) Laboratory Tests Test 06/26/18 17:50 06/27/18 07:43 Glucose (Fingerstick) 85 mg/dL (70-99) 91 mg/dL (70-99) Medications Current Medications Heparin Sodium (Porcine) (Heparin Sodium) 4,000 unit 1X ONCE IV Last administered on 06/25/18at 13:18; Start 06/25/18 at 13:00; Stop 06/25/18 at 13 :01; Status DC Heparin Sodium/ Dextrose 500 ml @ 0 mls/hr CONT PRN IV SEE I/O RECORD Last administered on 06/25/18at 13:23; Start 06/25/18 at 13:00; Stop 06/27/18 at 09 :55; Status DC Heparin Sodium (Porcine) (Heparin Sodium) 2,300 unit PRN Q6HRS PRN IV FOR UFH LEVEL LESS THAN 0.2; Start 06/25/18 at 13:00; Stop 06/27/18 at 09:56; Status DC Nitroglycerin (Nitro-Bid Oint) 1 inch 1X ONCE TP Last administered on at 13:17; Start 06/25/18 at 13:00; Stop 06/25/18 at 13:01; Status DC Info (Anti-Coagulation Monitoring By Pharmacy) 1 each PRN DAILY PRN MC SEE COMMENTS Last administered on 06/26/18at 10:07; Start 06/25/18 at 13:00 Acetaminophen (Tylenol) 1,000 mg 1X ONCE PO Last administered on 06/25/18at 13 :27; Start 06/25/18 at 13:15; Stop 06/25/18 at 13:16; Status DC Metoprolol Succinate (Toprol Xl) 25 mg DAILY PO ; Start 06/25/18 at 16:30; Stop 06/25/18 at 16:30; Status DC Aspirin (Ecotrin) 81 mg DAILY PO Last administered on 06/27/18at 08:39; Start 06/25/18 at 16:30 Lisinopril (Prinivil) 20 mg DAILY PO Last administered on 06/27/18at 08:38; Start 06/25/18 at 16:30 Acetaminophen (Tylenol) 500 mg PRN Q6HRS PRN PO MILD PAIN / TEMP Last administered on 06/27/18at 08:42; Start 06/25/18 at 16:15 Insulin Human Lispro (HumaLOG) 0-9 UNITS TIDWMEALS SQ ; Start 06/25/18 at 17:00 Dextrose (Dextrose 50%-Water Syringe) 12.5 gm PRN Q15MIN PRN IV SEE COMMENTS; Start 06/25/18 at 16:15 Furosemide (Lasix) 40 mg DAILY PO Last administered on 06/27/18at 08:38; Start 06/25/18 at 17:00 Isosorbide Mononitrate (Ismo) 10 mg BID92 PO Last administered on 06/27/18at 08 :39; Start 06/26/18 at 09:00 Metoprolol Tartrate (Lopressor) 25 mg BID PO Last administered on 06/25/18at 21 :37; Start 06/25/18 at 21:00; Stop 06/26/18 at 16:28; Status DC Hydralazine HCl (Apresoline) 25 mg BID PO Last administered on 06/27/18at 08:38 ; Start 06/25/18 at 21:00 Spironolactone (Aldactone) 25 mg DAILY PO Last administered on 06/27/18at 08:38 ; Start 06/25/18 at 17:00 Influenza Virus Vaccine (Afluria Trivalent 7498-2055 Syringe) 0.5 ml ONCE ONCE VAX IM Last administered on 06/25/18at 17:29; Start 06/25/18 at 17:00; Stop 06/25/18 at 17:01; Status DC Acetaminophen/ Hydrocodone Bitart (Lortab 5/325) 1 tab PRN Q4HRS PRN PO MODERATE - SEVERE PAIN Last administered on 06/26/18at 22:30; Start 06/26/18 at 01:15 Iodixanol (Visipaque 320) 100 ml STK-MED ONCE .ROUTE ; Start 06/26/18 at 11:28 ; Stop 06/26/18 at 11:29; Status DC Lidocaine HCl (Xylocaine-Mpf 1% 2ml Vial) 2 ml STK-MED ONCE .ROUTE ; Start at 11:28; Stop 06/26/18 at 11:29; Status DC Heparin Sodium/ Sodium Chloride 500 ml @ As Directed STK-MED ONCE .ROUTE ; Start 06/26/18 at 11:28; Stop 06/26/18 at 11:29; Status DC Heparin Sodium/ Sodium Chloride 500 ml @ As Directed STK-MED ONCE .ROUTE ; Start 06/26/18 at 11:39; Stop 06/26/18 at 11:40; Status DC Fentanyl Citrate (Fentanyl 2ml Vial) 100 mcg STK-MED ONCE .ROUTE ; Start at 11:55; Stop 06/26/18 at 11:56; Status DC Midazolam HCl (Versed) 2 mg STK-MED ONCE .ROUTE ; Start 06/26/18 at 11:55; Stop 06/26/18 at 11:56; Status DC Heparin Sodium (Porcine) (Heparin Sodium) 10,000 unit STK-MED ONCE .ROUTE ; Start 06/26/18 at 11:55; Stop 06/26/18 at 11:56; Status DC Verapamil HCl (Verapamil) 5 mg STK-MED ONCE .ROUTE ; Start 06/26/18 at 11:55; Stop 06/26/18 at 11:56; Status DC Nitroglycerin (Nitroglycerin) 200 mcg STK-MED ONCE .ROUTE ; Start 06/26/18 at 11:56; Stop 06/26/18 at 11:57; Status DC Nitroglycerin (Nitroglycerin) 200 mcg 1X ONCE IART Last administered on at 12:25; Start 06/26/18 at 12:15; Stop 06/26/18 at 12:19; Status DC Verapamil HCl (Verapamil) 2.5 mg 1X ONCE IART Last administered on 06/26/18at 12:24; Start 06/26/18 at 12:15; Stop 06/26/18 at 12:19; Status DC Heparin Sodium (Porcine) (Heparin Sodium) 2,500 unit 1X ONCE IART Last administered on 06/26/18at 12:25; Start 06/26/18 at 12:15; Stop 06/26/18 at 12 :19; Status DC Heparin Sodium/ Sodium Chloride (HEPARIN for ARTERIAL LINE FLUSH) 1,000 unit 1X ONCE IART Last administered on 06/26/18at 12:24; Start 06/26/18 at 12:15; Stop 06/26/18 at 12:19; Status DC Midazolam HCl (Versed) 2 mg 1X ONCE IV Last administered on 06/26/18at 12:22; Start 06/26/18 at 12:15; Stop 06/26/18 at 12:19; Status DC Fentanyl Citrate (Fentanyl 2ml Vial) 100 mcg 1X ONCE IV Last administered on 06/26/18at 12:24; Start 06/26/18 at 12:15; Stop 06/26/18 at 12:19; Status DC Iodixanol (Visipaque 320) 100 ml 1X ONCE IART Last administered on 06/26/18at 12:24; Start 06/26/18 at 12:15; Stop 06/26/18 at 12:19; Status DC Lidocaine HCl (Xylocaine-Mpf 1% 2ml Vial) 2 ml 1X ONCE INJ Last administered on 06/26/18at 12:25; Start 06/26/18 at 12:15; Stop 06/26/18 at 12:19; Status DC Info (CONTRAST GIVEN -- Rx MONITORING) 1 each PRN DAILY PRN MC SEE COMMENTS; Start 06/26/18 at 12:30; Stop 06/28/18 at 12:29 Enoxaparin Sodium (Lovenox 100mg Syringe) 90 mg Q12HR SQ ; Start 06/27/18 at 10 :00 Warfarin Sodium (Coumadin Per Pharmacy) 1 each PRN DAILY PRN MC SEE COMMENTS; Start 06/27/18 at 10:00 Active Scripts Active Coumadin (Warfarin Sodium) 10 Mg Tablet 1 Each MC PRN DAILY PRN Lisinopril 20 Mg Tablet 40 Mg PO DAILY Reported Spironolactone 25 Mg Tablet 25 Mg PO DAILY Metoprolol Tartrate 25 Mg Tablet 25 Mg PO BID Hydralazine Hcl 25 Mg Tablet 1 Tab PO BID Isosorbide Mononitrate Er (Isosorbide Mononitrate) 30 Mg Tab.er.24h 10 Mg PO BID Furosemide 40 Mg Tablet 40 Mg PO DAILY Aspir 81 (Aspirin) 81 Mg Tablet. 1 PO DAILY Vitals/I & O Vital Sign - Last 24 Hours 06/26/18 06/26/18 06/26/18 06/26/18 12:24 12:24 12:26 12:52 Pulse 57 56 93 Resp 16 18 16 B/P (MAP) 101/43 Pulse Ox 97 96 98 O2 Delivery Nasal Cannula Room Air Room Air O2 Flow Rate 2.0 06/26/18 06/26/18 06/26/18 06/26/18 13:15 13:47 15:06 19:10 Pulse 86 57 Resp 16 B/P (MAP) 110/63 (79) Pulse Ox 98 98 99 O2 Delivery Room Air Room Air Room Air Room Air O2 Flow Rate 2.0 06/26/18 06/26/18 06/26/18 06/26/18 19:23 20:52 22:28 22:30 Temp 97.6 98.1 97.6 98.1 Pulse 67 60 88 Resp 16 16 16 B/P (MAP) 137/49 (78) 137/49 132/51 (78) Pulse Ox 100 99 O2 Delivery Room Air Room Air Room Air 06/26/18 06/27/18 06/27/18 06/27/18 23:30 03:48 07:00 08:00 Temp 97.8 97.8 97.8 97.8 Pulse 70 66 Resp 16 17 18 B/P (MAP) 125/81 (96) 125/50 (75) Pulse Ox 100 98 100 O2 Delivery Room Air Room Air Room Air Room Air 06/27/18 06/27/18 06/27/18 08:38 08:38 08:39 Pulse 70 63 57 B/P (MAP) 125/50 125/50 125/50 Intake and Output 06/26/18 06/26/18 06/27/18 15:00 23:00 07:00 Intake Total 120 ml 1500 ml Balance 120 ml 1500 ml YOLIS SANDOVAL MD Jun 27, 2018 10:27
[2018-06-27 11:00] VITALS: BP 129/99
[2018-06-27] MEDS: ANTI-COAG MONITOR BY PHARMACY. MC PRN (12:52)
--- NOTE | 2018-06-27 12:56 | PDOC3 ---
Discharge Summary Visit Information Date of Admission: Jun 25, 2018 Date of Discharge: Jun 27, 2018 Admitting Diagnosis Comment: chest pain, s/p clean [facility] 06/26 History CAD, with 1 stent SLow atrial flutter, new onset TACHY-Braden syndrome Incarcerated HTN controlled \Smoker Fam HX CAD. premature Final Diagnosis Problems Medical Problems: (1) Acute coronary syndrome Status: Acute (2) Chest pain Status: Acute Brief Hospital Course Allergies Allergies Coded Allergies Type Severity Reaction Last Updated Verified coconut Allergy Intermediate 06/25/18 Yes Vital Signs Vital Signs Date Time Temp Pulse Resp B/P (MAP) Pulse Ox O2 Delivery O2 Flow Rate FiO2 06/27/18 11:00 97.1 67 18 129/99 (109) 100 Room Air 97.1 06/26/18 13:47 2.0 Lab Results Laboratory Tests Test 06/25/18 16:53 06/25/18 19:35 06/26/18 02:15 06/26/18 08:15 Glucose (Fingerstick) 91 mg/dL (70-99) Heparin Anti-Xa Act, Unfractionated 0.56 IU/mL (0.30-0.70) 0.48 IU/mL (0.30-0.70) 0.52 IU/mL (0.30-0.70) Troponin I Quantitative 0.524 ng/mL (0.000-0.055) Test 06/26/18 09:03 06/26/18 17:50 06/27/18 07:43 06/27/18 11:09 Glucose (Fingerstick) 77 mg/dL (70-99) 85 mg/dL (70-99) 91 mg/dL (70-99) 101 mg/dL (70-99) Laboratory Tests Test 06/26/18 17:50 06/27/18 07:43 06/27/18 11:09 Glucose (Fingerstick) 85 mg/dL (70-99) 91 mg/dL (70-99) 101 mg/dL (70-99) Brief Hospital Course Mr. Garcias is a 62 old male, inmate, admitted because of chest pain troponin peaked at 0.4 or around that area. Received heparin drip. But [facility] is clean. He had a new onset slow atrial flutter at ER. His course was remarkable for tachy-bradycardia syndrome with symptoms of dizziness and lightheadedness. Cardiology has planned for pacemaker which he might need in the future but not urgently today. He already is on some cardiac meds and has scripts. New medications started was warfarin 10 mg once a day. The goal INR 2- 3. Discharge INR was 1.2. [facility] is unable to do Lovenox shots. They can manage warfarin over there with a goal INR of 2-3 2 Notes today Consults performed cardiology Procedures performed [facility] 06/26/18 Discharge Information Condition at Discharge: Improved, Stable Disposition/Orders: Other (residential) Scheduled Aspirin (Aspir 81) 81 Mg Tablet.dr, 1 PO DAILY, #30 Ref 5 (Reported) Entered as Reported by: Harshil Mina on 05/05/168 Last Action: Reviewed on 06/25/181618 by STEF CABRERA Furosemide (Furosemide) 40 Mg Tablet, 40 MG PO DAILY, (Reported) Entered as Reported by: STEF CABRERA on 06/25/181618 Last Action: Continued on 06/25/181623 by YOLIS SANDOVAL Hydralazine Hcl (Hydralazine Hcl) 25 Mg Tablet, 1 TAB PO BID, #180 Ref 3 ( Reported) Entered as Reported by: STEF CABRERA on 06/25/181618 Last Action: Converted on 06/25/181623 by YOLIS SANDOVAL Isosorbide Mononitrate (Isosorbide Mononitrate Er) 30 Mg Tab.er.24h, 10 MG PO BID, (Reported) Entered as Reported by: STEF CABRERA on 06/25/181618 Last Action: Continued on 06/25/181623 by YOLIS SANDOVAL Lisinopril (Lisinopril) 20 Mg Tablet, 40 MG PO DAILY, #60 Prescribed by: DANISH DYER MD on 05/09/16 1142 Last Action: Reviewed on 06/25/181618 by STEF CABRERA Metoprolol Tartrate (Metoprolol Tartrate) 25 Mg Tablet, 25 MG PO BID for FOR HYPERTENSION, #60 Ref 0 (Reported) Entered as Reported by: STEF CABRERA on 06/25/181618 Last Action: Continued on 06/25/181623 by YOLIS SANDOVAL Spironolactone (Spironolactone) 25 Mg Tablet, 25 MG PO DAILY, (Reported) Entered as Reported by: STEF CABRERA on 06/25/181618 Last Action: Converted on 06/25/181623 by YOLIS SANDOVAL Scheduled PRN Warfarin Sodium (Coumadin) 10 Mg Tablet, 1 EACH MC PRN DAILY PRN for SEE COMMENTS, #30 Prescribed by: YOLIS SANDOVAL on 06/27/18 0952 Discontinued Medications Carvedilol (Coreg) 3.125 Mg Tablet, 1 TAB PO BID, #180 Ref 1 (Reported) Entered as Reported by: Harshil Mina on 05/05/16427 Last Action: Discontinued on 06/25/181614 by STEF CABRERA Hydrochlorothiazide (Hydrochlorothiazide Tablet ) 25 Mg Tablet, 1 TAB PO DAILY, #30 Ref 5 (Reported) Entered as Reported by: Harshil Mina on 05/05/16426 Last Action: Discontinued on 06/25/181614 by YOLIS SUAZO MD Jun 27, 2018 12:56
[2018-06-27 14:56] VITALS: BP 137/60
[2018-06-27] MEDS ORDERED: WARFARIN 7.5 MG TABLET. PO ONE (16:00)
== END 2018-06-27 15:20 | disposition home or self-care (01) | DRG 281 ==
LOC: ER 12:04 → EEVIPCON 12:04 → CVICU 14:20
PROVIDERS: ADMIT Internal Medicine; ATTEND Internal Medicine
PROC: 4A023N7 Measurement of Cardiac Sampling and Pressure, Left Heart, Percutaneous Approach (ICD-10-PCS; principal; 2018-06-26)
PROC: B2111ZZ Fluoroscopy of Multiple Coronary Arteries using Low Osmolar Contrast (ICD-10-PCS; 2018-06-26)
PROC: B2151ZZ Fluoroscopy of Left Heart using Low Osmolar Contrast (ICD-10-PCS; 2018-06-26)
DX: I21.4 Non-ST elevation (NSTEMI) myocardial infarction (principal); I50.22 Chronic systolic (congestive) heart failure; I48.92 Unspecified atrial flutter; E11.9 Type 2 diabetes mellitus without complications; I44.7 Left bundle-branch block, unspecified; I11.0 Hypertensive heart disease with heart failure; I49.5 Sick sinus syndrome; I25.10 Atherosclerotic heart disease of native coronary artery without angina pectoris; I25.2 Old myocardial infarction; F17.210 Nicotine dependence, cigarettes, uncomplicated; I48.91 Unspecified atrial fibrillation; E78.5 Hyperlipidemia, unspecified; I25.5 Ischemic cardiomyopathy; Z95.5 Presence of coronary angioplasty implant and graft; Z82.49 Family history of ischemic heart disease and other diseases of the circulatory system; Z82.3 Family history of stroke; Z79.01 Long term (current) use of anticoagulants
CPT/HCPCS: 36415; 71045; 76770; 80053; 80061; 82553; 82962; 83690; 83735; 83880; 84443; 84484; 85025; 85520; 85610; 90471; 90756; 93005; 93306; 93458; 96374; 99152; 99153; 99406; C1769; C1892; J1644; J1650; J1815; J2250; J3010; J3490; 99285-25; Q2035